=== PATIENT | female | born 1970 | race Caucasian/White ===

== ENCOUNTER 2023-09-04 16:12 | Emergency (ER) | payer MEDICARE, MEDICAID ==
[~2023-09-04] VITALS: Ht 182.9 cm; Wt 106.8 kg
[~2023-09-04 16:12] MED LIST: CALCIUM 600 MG1 EAC2 PO; K-DUR20 MEQ PO; LIPITOR 10MG10 MG PO; LOPRESSOR 225 MG/TAB PO; LYRICA 75MG CAP75 MG PO; MULTI VITAMINS1 TAB PO
[2023-09-04 16:22] VITALS: BP 118/70; TEMP 98
[2023-09-04] MEDS ORDERED: ELIMITE TOP (17:20)
[2023-09-04 17:35] VITALS: PULSE 76
== END 2023-09-04 17:35 | disposition home or self-care (01) ==
LOC: COL.ER 16:12
DX: S63.501A Unspecified sprain of right wrist, initial encounter (principal); L98.9 Disorder of the skin and subcutaneous tissue, unspecified; W00.0XXA Fall on same level due to ice and snow, initial encounter

== ENCOUNTER 2024-04-26 06:19 | Emergency (ER) | payer OTHER ==
[~2024-04-26] VITALS: Ht 182.9 cm; Wt 111.4 kg
[~2024-04-26 06:19] MED LIST changes: +ELIMITE TOP
[2024-04-26 06:22] VITALS: TEMP 97.9
[2024-04-26 07:55] VITALS: BP 120/92; PULSE 83
[2024-04-26 08:19] LABS: TRICYCLIC ANTIDEPRESS URINE NEGATIVE (NEGATIVE)
== END 2024-04-26 07:59 | disposition home or self-care (01) ==
LOC: COL.ER 06:19
PROVIDERS: Emergency Medicine
DX: R53.83 Other fatigue (principal); R53.81 Other malaise